=== PATIENT | female | born 1960 | race Caucasian/White ===

== ENCOUNTER → 2019-07-14 | Outpatient (CLI) | payer BC | LOC: HYPER 09:45 | DX: T81.41XD Infection following a procedure, superficial incisional surgical site, subsequent encounter (principal); E03.9 Hypothyroidism, unspecified; E43 Unspecified severe protein-calorie malnutrition; J45.909 Unspecified asthma, uncomplicated; K63.2 Fistula of intestine; K43.6 Other and unspecified ventral hernia with obstruction, without gangrene; Z48.00 Encounter for change or removal of nonsurgical wound dressing; Y83.8 Other surgical procedures as the cause of abnormal reaction of the patient, or of later complication, without mention of misadventure at the time of the procedure ==

== ENCOUNTER → 2019-07-21 | Outpatient (CLI) | payer BC | LOC: HYPER 08:02 | DX: T81.41XD Infection following a procedure, superficial incisional surgical site, subsequent encounter (principal); K43.6 Other and unspecified ventral hernia with obstruction, without gangrene; E03.9 Hypothyroidism, unspecified; J45.909 Unspecified asthma, uncomplicated; E43 Unspecified severe protein-calorie malnutrition; K63.2 Fistula of intestine; Y83.8 Other surgical procedures as the cause of abnormal reaction of the patient, or of later complication, without mention of misadventure at the time of the procedure ==

== ENCOUNTER → 2019-07-28 | Outpatient (CLI) | payer BC | LOC: HYPER 07:56 | DX: T81.41XD Infection following a procedure, superficial incisional surgical site, subsequent encounter (principal); K43.6 Other and unspecified ventral hernia with obstruction, without gangrene; K63.2 Fistula of intestine; E03.9 Hypothyroidism, unspecified; E43 Unspecified severe protein-calorie malnutrition; J45.909 Unspecified asthma, uncomplicated; Z48.00 Encounter for change or removal of nonsurgical wound dressing; Y83.8 Other surgical procedures as the cause of abnormal reaction of the patient, or of later complication, without mention of misadventure at the time of the procedure ==

== ENCOUNTER → 2019-08-11 | Outpatient (CLI) | payer BC | LOC: HYPER 08:07 | DX: T81.41XD Infection following a procedure, superficial incisional surgical site, subsequent encounter (principal); K43.6 Other and unspecified ventral hernia with obstruction, without gangrene; E03.9 Hypothyroidism, unspecified; J45.909 Unspecified asthma, uncomplicated; E43 Unspecified severe protein-calorie malnutrition; K63.2 Fistula of intestine; Y83.8 Other surgical procedures as the cause of abnormal reaction of the patient, or of later complication, without mention of misadventure at the time of the procedure ==

== ENCOUNTER → 2019-08-25 | Outpatient (CLI) | payer BC | LOC: HYPER 08:08 | DX: T81.41XD Infection following a procedure, superficial incisional surgical site, subsequent encounter (principal); K43.6 Other and unspecified ventral hernia with obstruction, without gangrene; K63.2 Fistula of intestine; E03.9 Hypothyroidism, unspecified; E43 Unspecified severe protein-calorie malnutrition; J45.909 Unspecified asthma, uncomplicated; Z48.00 Encounter for change or removal of nonsurgical wound dressing; Y83.8 Other surgical procedures as the cause of abnormal reaction of the patient, or of later complication, without mention of misadventure at the time of the procedure ==

== ENCOUNTER → 2019-09-08 | Outpatient (CLI) | payer BC | LOC: HYPER 08:06 | DX: T81.41XD Infection following a procedure, superficial incisional surgical site, subsequent encounter (principal); K43.6 Other and unspecified ventral hernia with obstruction, without gangrene; E03.9 Hypothyroidism, unspecified; J45.909 Unspecified asthma, uncomplicated; E43 Unspecified severe protein-calorie malnutrition; K63.2 Fistula of intestine; Y83.8 Other surgical procedures as the cause of abnormal reaction of the patient, or of later complication, without mention of misadventure at the time of the procedure ==

== ENCOUNTER → 2019-10-06 | Outpatient (CLI) | payer BC | LOC: HYPER 07:48 | PROVIDERS: ATTEND Emergency Medicine | DX: T81.41XD Infection following a procedure, superficial incisional surgical site, subsequent encounter (principal); K43.6 Other and unspecified ventral hernia with obstruction, without gangrene; E03.9 Hypothyroidism, unspecified; J45.909 Unspecified asthma, uncomplicated; E43 Unspecified severe protein-calorie malnutrition; K63.2 Fistula of intestine; Y83.8 Other surgical procedures as the cause of abnormal reaction of the patient, or of later complication, without mention of misadventure at the time of the procedure ==